=== PATIENT | male | born 1985 | race Caucasian/White ===

== ENCOUNTER 2017-12-17 08:03 | Day surgery (SDC) | payer MEDICAID, OTHER ==
[~2017-12-17 08:03] MED LIST: LIDOCAINE HCL 1% MPF SOL ONE; PROPOFOL 500 MG/50 ML EMU IV ONE
[2017-12-17] MEDS ORDERED: PROPOFOL 500 MG/50 ML EMU IV ONE (10:24)
[2017-12-17 10:28] VITALS: TEMP 97.8
[2017-12-17 10:58] VITALS: RESP 20
[2017-12-17 11:10] VITALS: BP 138/85; PULSE 77; O2SAT 97
== END 2017-12-17 11:30 | disposition home or self-care (01) ==
LOC: SURG 08:03
PROVIDERS: ATTEND Internal Medicine Gastroenterology
DX: R10.9 Unspecified abdominal pain (principal); K52.9 Noninfective gastroenteritis and colitis, unspecified; K59.00 Constipation, unspecified; K44.9 Diaphragmatic hernia without obstruction or gangrene; K22.10 Ulcer of esophagus without bleeding; Q39.9 Congenital malformation of esophagus, unspecified; K64.8 Other hemorrhoids; K29.70 Gastritis, unspecified, without bleeding
CPT/HCPCS: J2001; J2704

== ENCOUNTER 2018-02-18 08:24 | Day surgery (SDC) | payer OTHER ==
[~2018-02-18 08:24] MED LIST changes: +FENTANYL 100MCG/2ML SOL ONE; -LIDOCAINE HCL 1% MPF SOL ONE
[2018-02-18 10:29] VITALS: RESP 16
[2018-02-18 10:43] VITALS: O2SAT 95
[2018-02-18 10:50] VITALS: BP 136/87; PULSE 71; TEMP 97.2
[2018-02-18] MEDS ORDERED: PROPOFOL 500 MG/50 ML EMU IV ONE (11:01)
== END 2018-02-18 11:18 | disposition home or self-care (01) ==
LOC: SURG 08:24
PROVIDERS: ATTEND Internal Medicine Gastroenterology
DX: K21.9 Gastro-esophageal reflux disease without esophagitis (principal); K22.10 Ulcer of esophagus without bleeding; K44.9 Diaphragmatic hernia without obstruction or gangrene; Q39.9 Congenital malformation of esophagus, unspecified; L53.8 Other specified erythematous conditions; K31.9 Disease of stomach and duodenum, unspecified
CPT/HCPCS: J3010; J2704

== ENCOUNTER 2018-05-05 09:44 | Emergency (ER) | payer OTHER ==
[2018-05-05 10:01] VITALS: RESP 20; TEMP 97.4
[2018-05-05] MEDS ORDERED: LORAZEPAM 2 MG/ML SOL ONE (10:08)
[2018-05-05] MEDS ORDERED: LORAZEPAM 2 MG/ML SOL IM ONE (10:08)
[2018-05-05 10:58] VITALS: BP 131/89; PULSE 73; O2SAT 97
== END 2018-05-05 10:45 | disposition home or self-care (01) ==
LOC: ED 09:44
DX: R06.02 Shortness of breath (principal); F41.9 Anxiety disorder, unspecified
CPT/HCPCS: 71046; 93005; 96372; 99283; 99284; J2060

== ENCOUNTER 2018-11-14 11:26 | Emergency (ER) | payer OTHER ==
[2018-11-14] MEDS ORDERED: SODIUM CHLORIDE 0.9% 1000ML 1,000 ML IV ONE (11:52)
[2018-11-14] MEDS ORDERED: ONDANSETRON HCL 4 MG/2 ML SOL IV ONE (11:53)
[2018-11-14] MEDS ORDERED: PANTOPRAZOLE SODIUM 40 MG/10 ML PDS IV ONE (12:04)
[2018-11-14 12:05] LABS: BASOPHILS % (AUTO) 0 % (0-3); EOSINOPHILS % (AUTO) 3 % (0-9); HEMATOCRIT 45 % (39-53); HEMOGLOBIN 14.9 gm/dl (13.5-17.7); LYMPHOCYTES % (AUTO) 38.7 % (10-50); MEAN CORPUSCULAR HEMOGLOBIN 26.8 pg (27.0-32.0); MEAN CORPUSCULAR HGB CONC 32.7 gm/dl (32.0-36.0); MEAN CORPUSCULAR VOLUME 82 fL (80-100); MONOCYTES % (AUTO) 6.1 % (0-12); NEUTROPHILS % (AUTO) 52.3 % (37-80)
[2018-11-14] MEDS ORDERED: SODIUM CHLORIDE 0.9% FLUSH 10 ML SOL IV PRN (12:06)
[2018-11-14] MEDS ORDERED: PANTOPRAZOLE SODIUM 40 MG/10 ML PDS ONE (12:10)
[2018-11-14] MEDS ORDERED: ONDANSETRON HCL 4 MG/2 ML SOL ONE (12:10)
[2018-11-14 12:19] LABS: ALBUMIN 3.4 gm/dl (3.4-5.0); BILIRUBIN,TOTAL 0.4 mg/dl (0.2-1.0); CALCIUM 8.3 mg/dl (8.5-10.1); CARBON DIOXIDE 27.7 mEq/L (21-32); CREATININE 0.84 mg/dl (0.80-1.30); POTASSIUM 3.5 mMol/L (3.5-5.1); TOTAL PROTEIN 6.7 gm/dl (6.4-8.2)
[2018-11-14 12:27] LABS: INR 0.97 (0.86-1.12)
[2018-11-14 13:17] VITALS: BP 143/85; PULSE 60; RESP 18; TEMP 98.1; O2SAT 98
[2018-11-14 13:22] LABS: APPEARANCE,URINE Clear; BILIRUBIN,URINE NEGATIVE (NEGATIVE); COLOR,URINE Yellow; GLUCOSE, URINE (UA) NEGATIVE (NEGATIVE); KETONES,URINE NEGATIVE (NEGATIVE); LEUKOCYTE ESTERASE ,URINE NEGATIVE (NEGATIVE); NITRATE,URINE NEGATIVE (NEGATIVE); OCCULT BLOOD,URINE NEGATIVE (NEG-TRACE); PH,URINE 6.5; UROBILINOGEN,URINE 0.2 (0.2-1.0 EU)
[2018-11-14 13:38] LABS: BACTERIA 1+ (< 1+); CRYSTALS NEGATIVE (0-3 AVE/HPF); EPITHELIAL CELLS 0-3 (SQUAMOUS); RBC,URINE 0-2 (0-3AV/HPF); WBC,URINE NEGATIVE (0-5AV/HPF)
== END 2018-11-14 13:48 | disposition home or self-care (01) | DRG 392 ==
LOC: ED 11:26
DX: R19.7 Diarrhea, unspecified (principal); R11.2 Nausea with vomiting, unspecified; E86.0 Dehydration; K76.0 Fatty (change of) liver, not elsewhere classified; N20.0 Calculus of kidney
CPT/HCPCS: 74176; 80053; 81001; 85025; 85610; 85730; 96365; 96374; 96375; 99284; 99285; J2405